=== PATIENT | male | born 1990 | race Caucasian/White ===

== ENCOUNTER 2018-01-29 15:52 | Emergency (ER) | payer OTHER ==
[~2018-01-29] VITALS: Ht 177.8 cm; Wt 113.0 kg
[2018-01-29 15:54] VITALS: BP 152/87
[2018-01-29] MEDS ORDERED: KETOROLAC 30 MG/1 ML ONE (16:13)
[2018-01-29] MEDS ORDERED: KETOROLAC 30 MG/1 ML IM ONE (16:30)
== END 2018-01-29 16:31 | disposition home or self-care (01) ==
LOC: ED 16:25
DX: K08.89 Other specified disorders of teeth and supporting structures (principal)
CPT/HCPCS: 96372; 99283; J1885